=== PATIENT | female | born 1980 ===

== ENCOUNTER 2016-12-16 11:55 | Emergency (ER) | payer OTHER ==
[2016-12-16 11:55] VITALS: BMI 42.2
[2016-12-16 12:07] VITALS: RESP 18; O2SAT 100
[2016-12-16] MEDS ORDERED: Albuterol-Ipratrop 3 mg / 0.5 (3 ml) UD INH STA (12:19)
--- NOTE | 2016-12-16 12:26 | C.PDOC ---
History Of Present Illness 36 year old female, with PMHx of Asthma, presents to the ED for evaluation of cough, congestion and sore throat which began around 2 days ago. Patient denies fever, chills, sick contacts. Time Seen by Provider: 12/16/16 12:13 Chief Complaint (Nursing): Cough, Cold, Congestion History Per: Patient History/Exam Limitations: no limitations Onset/Duration Of Symptoms: Days (2) Current Symptoms Are (Timing): Still Present Location Of Pain: Throat Sick Contacts (Context): None Associated Symptoms: Cough, Nasal Congestion. denies: Fever, Chills Ear Symptoms: Bilateral: None Additional History Per: Patient Past Medical History Reviewed: Historical Data, Nursing Documentation, Vital Signs Vital Signs: Last Vital Signs Temp 97.6 F 12/16/16 13:43 Pulse 82 12/16/16 13:43 Resp 18 12/16/16 13:43 BP 122/78 12/16/16 13:43 Pulse Ox 100 12/16/16 13:49 - Medical History PMH: Asthma, Hypercholesterolemia Surgical History: No Surg Hx - [facility] Procedures OTHER AND UNSPECIFIED TOTAL ABDOMINAL HYSTERECTOMY (05/16/14) REMOVE BOTH FALLOP TUBES (05/16/14) Family History: States: Unknown Family Hx - Social History Hx Tobacco Use: No Hx Alcohol Use: No Hx Substance Use: No - Immunization History Hx Tetanus Toxoid Vaccination: No Hx Influenza Vaccination: Yes Hx Pneumococcal Vaccination: No Review Of Systems Constitutional: Negative for: Fever, Chills ENT: Positive for: Nose Congestion, Throat Pain Respiratory: Positive for: Cough Physical Exam - Physical Exam Appears: Non-toxic, No Acute Distress Skin: Normal Color, Warm, Dry Head: Atraumatic Eye(s): bilateral: Normal Inspection Ear(s): Bilateral: Normal Nose: Normal, No Discharge Oral Mucosa: Moist Throat: Erythema, No Exudate Neck: Supple Chest: Symmetrical, No Deformity, No Tenderness Cardiovascular: Rhythm Regular, No Murmur Respiratory: Decreased Breath Sounds (bilaterally ), No Rales, No Rhonchi, No Wheezing Back: Normal Inspection Extremity: Normal ROM, Capillary Refill (less than 2 seconds ) Neurological/Psych: Oriented x3, Normal Speech, Normal Cognition Gait: Steady ED Course And Treatment O2 Sat by Pulse Oximetry: 100 (on RA) Pulse Ox Interpretation: Normal Medical Decision Making Medical Decision Making: Impression: 36y/o female with cough, congestion and sore throat Plan: * labs * CXR * Albuterol INH * Prednisone PO * reassess and disposition Progress: labs, CXR ordered and reviewed. Patient received Albuterol INH and Prednisone PO. cxr neg as read by me. pt reports symptoms improved. advise outpt fu and return precautions Disposition - Disposition Referrals: [facility] [Outside] [facility] [Outside] [facility] [Outside] Disposition: HOME/ ROUTINE Disposition Time: 02:00 Condition: GOOD Prescriptions: Prednisone 50 mg PO DAILY #4 tab Instructions: Asthma (ED), Viral Syndrome (ED) Forms: [employer] (Luxembourgish) - Clinical Impression Clinical Impression: Viral disease, Asthma - Scribe Statement The provider has reviewed the documentation as recorded by the Scribe (Deb Wyatt) Provider Attestation: All medical record entries made by the Scribe were at my direction and personally dictated by me. I have reviewed the chart and agree that the record accurately reflects my personal performance of the history, physical exam, medical decision making, and the department course for this patient. I have also personally directed, reviewed, and agree with the discharge instructions and disposition.
[2016-12-16] MEDS ORDERED: Albuterol-Ipratrop 3 mg / 0.5 (3 ml) UD ONE (12:49)
[2016-12-16 13:46] VITALS: BP 122/78; PULSE 82; TEMP 97.6
--- NOTE | 2016-12-16 14:19 | RAD ---
HISTORY: cough COMPARISON: Chest x-ray performed 04/26/14 TECHNIQUE: Chest PA and lateral FINDINGS: Examination limited by habitus. LUNGS: No focal consolidation. Please note that chest x-ray has limited sensitivity for the detection of pulmonary masses. PLEURA: No significant pleural effusion identified. No definite pneumothorax . CARDIOVASCULAR: Heart size appears within normal limits. OSSEOUS STRUCTURES: No acute osseous abnormality identified. VISUALIZED UPPER ABDOMEN: Unremarkable. OTHER FINDINGS: None. IMPRESSION: No focal consolidation, significant pleural effusion, or definite pneumothorax identified.
== END 2016-12-16 13:49 | disposition home or self-care (01) ==
LOC: C.ER 11:55
DX: B34.9 Viral infection, unspecified (principal); J45.909 Unspecified asthma, uncomplicated

== ENCOUNTER 2017-02-11 13:39 | Emergency (ER) | payer OTHER ==
[2017-02-11 13:40] VITALS: BMI 42.2
[2017-02-11 13:48] VITALS: TEMP 98.1
--- NOTE | 2017-02-11 14:30 | C.PDOC ---
History Of Present Illness 36 yr old female presents to the ER stating while drying herself off this morning, she slipped and struck the lateral aspect of her right knee on the side of the tub. Patient reports of pain to the area and mil discomfort with weight bearing. Otherwise patient denies head injury, LOC, back pain, leg pain, weakness or numbness. Time Seen by Provider: 02/11/17 13:58 Chief Complaint (Nursing): Lower Extremity Problem/Injury History Per: Patient Onset/Duration Of Symptoms: Sudden Onset ([employer]) Current Symptoms Are (Timing): Still Present - Knee Description Of Injury: Struck Against Object Past Medical History Reviewed: Historical Data, Nursing Documentation, Vital Signs Vital Signs: Last Vital Signs Temp 98.1 F 02/11/17 13:45 Pulse 84 02/11/17 13:45 Resp 20 02/11/17 13:45 BP 138/82 02/11/17 13:45 Pulse Ox 99 02/11/17 15:04 - Medical History PMH: Asthma, Hypercholesterolemia - [facility] Procedures OTHER AND UNSPECIFIED TOTAL ABDOMINAL HYSTERECTOMY (05/16/14) REMOVE BOTH FALLOP TUBES (05/16/14) Family History: States: No Known Family Hx - Social History Hx Tobacco Use: No Hx Alcohol Use: No Hx Substance Use: No - Immunization History Hx Tetanus Toxoid Vaccination: No Hx Influenza Vaccination: Yes Hx Pneumococcal Vaccination: No Review Of Systems Except As Marked, All Systems Reviewed And Found Negative. Musculoskeletal: Positive for: Other ((+) Right knee pain). Negative for: Back Pain, Leg Pain Neurological: Negative for: Weakness, Numbness Physical Exam - Physical Exam Appears: Non-toxic, No Acute Distress Skin: Warm, Dry, No Rash Head: Atraumatic, Normacephalic Cardiovascular: Rhythm Regular, No Murmur Respiratory: Normal Breath Sounds, No Rales, No Rhonchi, No Stridor, No Wheezing Back: Normal Inspection, No CVA Tenderness Extremity: Normal ROM, Other (Right Knee - Mild tenderness to the lateral aspect. No swelling. No effusion. No laxity of the joint.) Neurological/Psych: Oriented x3, Normal Speech, Normal Motor, Normal Sensation ED Course And Treatment O2 Sat by Pulse Oximetry: 99 (RA) Pulse Ox Interpretation: Normal - Other Rad X-Ray - Right Knee X-Ray: Viewed By Me, Read By Radiologist Interpretation: PROCEDURE: Right Knee Radiographs. HISTORY: pain. COMPARISON : Prior weight-bearing bilateral knees 04/19/2016. FINDINGS: BONES: Normal. No fracture. JOINTS: Probable mild medial femoral tibial joint space narrowing. Patient's pain apparently is lateral-sided. No prominent spurring seen. JOINT EFFUSION: None. OTHER FINDINGS: None. 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 Otherwise unremarkable Medical Decision Making Medical Decision Making: PLAN: * X-Ray - Right Knee * Tylenol PO X-Ray - Right Knee : no fracture, no dislocation, as read by PA. Naresh wrap applied to the R knee. Disposition Counseled Patient/Family Regarding: Studies Performed, Diagnosis, Need For Followup, Rx Given - Disposition Referrals: [facility] [Outside] Disposition: HOME/ ROUTINE Disposition Time: 14:30 Condition: STABLE Additional Instructions: Follow up with your pmd or the clinic in 2 days without fail. Rest, ice and elevate your knee. Take over the counter aleeve as needed for pain. Return to the ER at any time for any new or worsening symptoms. Instructions: Contusion in Adults (ED), Knee Pain (ED) Forms: [employer] [facility] ([place]), Work Excuse Print Language: [place] - Clinical Impression Clinical Impression: Contusion of knee, right - PA / SYSTEM SAFETY MANAGER / Resident Statement MD/DO has reviewed & agrees with the documentation as recorded. - Scribe Statement The provider has reviewed the documentation as recorded by the Scribe Lacie Preciado All medical record entries made by the Scribe were at my direction and personally dictated by me. I have reviewed the chart and agree that the record accurately reflects my personal performance of the history, physical exam, medical decision making, and the department course for this patient. I have also personally directed, reviewed, and agree with the discharge instructions and disposition.
--- NOTE | 2017-02-11 15:00 | RAD ---
PROCEDURE: Right Knee Radiographs. HISTORY: pain COMPARISON: Prior weight-bearing bilateral knees 04/19/2016 FINDINGS: BONES: Normal. No fracture. JOINTS: Probable mild medial femoral tibial joint space narrowing. Patient's pain apparently is lateral-sided. No prominent spurring seen JOINT EFFUSION: None. OTHER FINDINGS: None. 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 Otherwise unremarkable
[2017-02-11 15:23] VITALS: BP 126/75; PULSE 78; RESP 18; O2SAT 98
== END 2017-02-11 15:23 | disposition home or self-care (01) ==
LOC: C.ER 13:39
DX: S80.01XA Contusion of right knee, initial encounter (principal); W01.198A Fall on same level from slipping, tripping and stumbling with subsequent striking against other object, initial encounter; Y93.E8 Activity, other personal hygiene; Y92.002 Bathroom of unspecified non-institutional (private) residence as the place of occurrence of the external cause

== ENCOUNTER 2017-06-12 09:39 | Emergency (ER) | payer OTHER ==
[2017-06-12 09:39] VITALS: BMI 42.5
[2017-06-12 09:51] VITALS: BP 127/78; PULSE 71; RESP 20; TEMP 98; O2SAT 98
--- NOTE | 2017-06-12 10:15 | C.PDOC ---
History Of Present Illness 36 y/o female presents to the ER complaining of blisters on the lips which have been present for the past 2 days.Patient states that she she placed some Vaseline on her lips w/o improvement. Patient notes that she had a URI for the past few days. Patient denies having fever, chills, trauma, and lesions inside of her mouth. Time Seen by Provider: 06/12/17 10:00 Chief Complaint (Nursing): Abnormal Skin Integrity History Per: Patient History/Exam Limitations: no limitations Onset/Duration Of Symptoms: Days Current Symptoms Are (Timing): Still Present Severity: Moderate Past Medical History Reviewed: Historical Data, Nursing Documentation, Vital Signs Vital Signs: Last Vital Signs Temp 98 F 06/12/17 09:45 Pulse 71 06/12/17 09:45 Resp 20 06/12/17 09:45 BP 127/78 06/12/17 09:45 Pulse Ox 98 06/12/17 10:50 - Medical History PMH: Asthma, Hypercholesterolemia Denies: Chronic Kidney Disease Other Surgeries: Hx of surgeries - [facility] Procedures OTHER AND UNSPECIFIED TOTAL ABDOMINAL HYSTERECTOMY (05/16/14) REMOVE BOTH FALLOP TUBES (05/16/14) Family History: States: No Known Family Hx - Social History Hx Tobacco Use: No Hx Alcohol Use: No Hx Substance Use: No - Immunization History Hx Tetanus Toxoid Vaccination: Yes Hx Influenza Vaccination: Yes Hx Pneumococcal Vaccination: No Review Of Systems Except As Marked, All Systems Reviewed And Found Negative. Constitutional: Negative for: Fever, Chills Skin: Positive for: Other (blisters on lips). Negative for: Lesions Physical Exam - Physical Exam Appears: Non-toxic, No Acute Distress Skin: Warm, Dry Head: Atraumatic, Normacephalic Eye(s): bilateral: Normal Inspection Nose: Normal Oral Mucosa: Moist Lips: Lesions (2 excoriated ulcerated lesions (1 lesion on the upper lip, 1 lesion on the lower lip)) Neck: Supple Chest: Symmetrical Neurological/Psych: Oriented x3, Normal Speech, Normal Motor, Normal Sensation ED Course And Treatment O2 Sat by Pulse Oximetry: 98 (RA) Pulse Ox Interpretation: Normal Medical Decision Making Medical Decision Making: Assessment: Stomatitis Updates: Patient has been discharged with prescription for Lidocaine HCI and told to follow up with PCP in 2 days. Disposition Counseled Patient/Family Regarding: Diagnosis, Need For Followup - Disposition Disposition: HOME/ ROUTINE Disposition Time: 10:12 Condition: STABLE Additional Instructions: follow up with your doctor in 2 days call to make an appointment apply medications as directed return to ER if symptoms worsens or progress Prescriptions: Lidocaine HCl [Lidocaine HCl Viscous] 1 appl MM QID PRN #30 solution PRN Reason: Pain, Moderate (4-7) Instructions: Mouth Sores (DC) Forms: [facility] (Citizen [place]), General Discharge Instructions - Clinical Impression Clinical Impression: Stomatitis - Scribe Statement The provider has reviewed the documentation as recorded by the Reneibe Manda Tao Provider Attestation: All medical record entries made by the Reneibe were at my direction and personally dictated by me. I have reviewed the chart and agree that the record accurately reflects my personal performance of the history, physical exam, medical decision making, and the department course for this patient. I have also personally directed, reviewed, and agree with the discharge instructions and disposition.
== END 2017-06-12 10:40 | disposition home or self-care (01) ==
LOC: C.ER 09:39
DX: K12.1 Other forms of stomatitis (principal)